=== PATIENT | male | born 1960 | race Caucasian/White ===

== ENCOUNTER 2020-10-23 23:57 | Emergency (ER) | payer MEDICARE ==
[~2020-10-23] VITALS: Ht 180.3 cm; Wt 145.0 kg
--- NOTE | 2020-10-24 00:44 | NUR ---
pt biba from home due to hx of COPD, given 2 nebs enroute. breathing easier on arrival. placed on 2L NC enroute due to sat in the high 80s, low 90s. pt denies any additional pain or complaints stating he feels significantly better after the neb tx. given decon shower on arrival to er due to ems report of bed bugs. Patient is resting comfortably in bed. Bed in lowest, rails engaged, call light on lap. Placed on spo2/bp/ecg monitoring, WCTM.
--- NOTE | 2020-10-24 01:01 | NUR ---
PT PROVIDED WARM BLANKETS FOR COMFORT, LABS OBTAINED, NAD, RESTING ON GURNEY, STATES HE STILL FEELS MUCH BETTER, VSS, WCTM. WAITING FOR LAB AND RAD RESULTS.
[2020-10-24 01:18] LABS: BASOPHILS % (AUTO) 1 % (0-1); EOSINOPHILS % (AUTO) 3 % (1-7); LYMPHOCYTES % (AUTO) 22 % (22-44); MEAN CORPUSCULAR HEMOGLOBIN 28.3 pg (27.5-34.5); MEAN CORPUSCULAR HGB CONC 33.7 g/dL (33.2-36.2); MEAN PLATELET VOLUME 8.5 fL (7.4-10.4); MONOCYTES % (AUTO) 6 % (2-9); NEUTROPHILS % (AUTO) 67 % (42-75); PLATELET COUNT 206 x10^3/uL (130-400); RED BLOOD COUNT 5.51 x10^6/uL (4.38-5.82); RED CELL DISTRIBUTION WIDTH 18.2 % (9.4-14.8)
[2020-10-24 01:33] LABS: ALBUMIN 3.1 g/dL (3.4-5.0); CALCIUM 8.2 mg/dL (8.5-10.1)
[2020-10-24 01:35] LABS: ALANINE AMINOTRANSFERASE 22 U/L (12-78); ALKALINE PHOSPHATASE 90 U/L (45-117); BILIRUBIN,TOTAL 0.5 mg/dL (0.2-1.0); CREATININE 1.39 mg/dL (0.7-1.3); TOTAL PROTEIN 8.1 g/dL (6.4-8.2); TROPONIN I < 0.015 ng/mL (0.000-0.045)
[2020-10-24 01:43] LABS: ANION GAP 6 mmol/L (5-15); CHLORIDE 103 mmol/L (98-107)
[2020-10-24 03:10] VITALS: BP 151/74
--- NOTE | 2020-10-24 03:11 | NUR ---
Patient given discharge instructions and they have confirmed that they understand the instructions. Patient ambulatory with steady gait BUT PROVIDED WHEELCHAIR FOR DC COMFORT. PROVIDED TAXI VOUCHER AND CLEAN CLOTHES FOR DC HOME. NAD, all questions answered appropriately, denies additional needs at this time. No personal belongings left in room after discharge.
== END 2020-10-24 03:11 | disposition home or self-care (01) ==
LOC: ED 10-24 00:27
DX: J44.1 Chronic obstructive pulmonary disease with (acute) exacerbation (principal); N28.9 Disorder of kidney and ureter, unspecified; F17.200 Nicotine dependence, unspecified, uncomplicated; R94.31 Abnormal electrocardiogram [ECG] [EKG]
CPT/HCPCS: 36415; 71045; 80053; 83880; 84484; 85025; 93005; 99285